=== PATIENT | female | born 1990 | race African-American/Black ===

== ENCOUNTER 2022-03-06 11:57 | Emergency (ER) | payer MEDICAID ==
[~2022-03-06] VITALS: Ht 162.6 cm; Wt 62.0 kg
[2022-03-06 12:03] VITALS: BP 184/82
[2022-03-06] MEDS ORDERED: LORAZEPAM 0.5MG TABLET PO ONE (13:00)
== END 2022-03-06 12:59 | disposition home or self-care (01) ==
LOC: ER 12:18
DX: F31.9 Bipolar disorder, unspecified (principal); Z79.899 Other long term (current) drug therapy
CPT/HCPCS: 99283